=== PATIENT | female | born 1985 | race Caucasian/White ===

== ENCOUNTER 2019-07-26 06:44 | Day surgery (SDC) | payer BC ==
[~2019-07-26 06:44] MED LIST: Lactated Ringers 1,000 ML IV SCH; Sodium Chloride 0.9% 10 ML SDV IV PRN; Sodium Chloride 0.9% 10 ML Syringe FLUSH PRN; Sodium Chloride 0.9% 2.5 ML Syringe FLUSH PRN
[2019-07-26] MEDS ORDERED: Lidocaine 2% 5 ML SDV ONE (07:01)
[2019-07-26] MEDS ORDERED: fentaNYL 250 MCG/5 ML SDV ONE (07:01)
[2019-07-26] MEDS ORDERED: Propofol 200 MG/20 ML SDV ONE (07:01)
[2019-07-26] MEDS ORDERED: Midazolam 1 MG/ML 2 ML SDV ONE (07:01)
[2019-07-26] MEDS ORDERED: Ondansetron 4 MG/2 ML SDV ONE (07:01)
--- NOTE | 2019-07-26 07:35 | PCM.PREANE ---
Preanesthetic Assessment - Anesthesia/Transfusion/Family Hx Anesthesia History: Prior Anesthesia Without Reaction Family History of Anesthesia Reaction: No Transfusion History: No Prior Transfusion(s) - Review of Systems General: No Symptoms Pulmonary: No Symptoms Cardiovascular: No Symptoms Gastrointestinal: No Symptoms Neurological: No Symptoms Other: Reports: None - Physical Assessment NPO Status Date: 07/25/19 NPO Status Time: 23:30 Vital Signs: Last Vital Signs Temp 97.7 F 07/26/19 07:10 Pulse 93 07/26/19 07:10 Resp 15 07/26/19 07:10 BP 138/91 H 07/26/19 07:10 Pulse Ox 94 L 07/26/19 07:10 Height: 5 ft 4 in Weight: 93.44 kg ASA Class: 2 Mental Status: Alert & Oriented x3 Airway Class: Mallampati = 2 Dentition: Reports: Normal Dentition ROM/Head Extension: Full Lungs: Clear to Auscultation, Normal Respiratory Effort Cardiovascular: Regular Rate, Regular Rhythm - Lab Values: Laboratory Last Values WBC 9.74 K/uL (4.0-11.0) 07/26/19 07:01 RBC 5.30 M/uL (4.30-5.90) 07/26/19 07:01 Hgb 14.2 g/dL (12.0-16.0) 07/26/19 07:01 Hct 43.8 % (36.0-46.0) 07/26/19 07:01 MCV 82.6 fL (80.0-98.0) 07/26/19 07:01 MCH 26.8 pg (27.0-32.0) L 07/26/19 07:01 MCHC 32.4 g/dL (31.0-37.0) 07/26/19 07:01 RDW Std Deviation 47.5 fl (28.0-62.0) 07/26/19 07:01 RDW Coeff of Shanell 16 % (11.0-15.0) H 07/26/19 07:01 Plt Count 254 K/uL (150-400) 07/26/19 07:01 MPV 10.70 fL (7.40-12.00) 07/26/19 07:01 Nucleated RBC % 0.0 /100WBC 07/26/19 07:01 Nucleated RBCs # 0 K/uL 07/26/19 07:01 HCG, Qual NEGATIVE (NEG) 07/26/19 07:01 - Allergies Allergies/Adverse Reactions: Allergies Allergy/AdvReac Type Severity Reaction Status Date / Time No Known Allergies Allergy Verified 07/23/19 09:53 - Blood Blood Available: No - Anesthesia Plan Pre-Op Medication Ordered: None - Acknowledgements Anesthesia Type Planned: General Anesthesia Pt an Appropriate Candidate for the Planned Anesthesia: Yes Alternatives and Risks of Anesthesia Discussed w Pt/Guardian: Yes Pt/Guardian Understands and Agrees with Anesthesia Plan: Yes Additional Comments: PMH: thyroid replacement, ulcerative colitis being rxed with tums and lomotil, gerd, depression PLAN: ga/lma PreAnesthesia Questionnaire HEENT History: Reports: None Cardiovascular History: Reports: None Respiratory History: Reports: None Gastrointestinal History: Reports: Colon Polyp, GERD Other Gastrointestinal History: hx ulcerative colitis Genitourinary History: Reports: None 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: Dysfunctional Uterine Bleeding Musculoskeletal History: Reports: Fracture Other Musculoskeletal History: hx fx foot Neurological History: Reports: Other (See Below) Other Neuro History: hx bells palsy Psychiatric History: Reports: Anxiety, Depression Endocrine/Metabolic History: Reports: Hypothyroidism, Obesity/BMI 30+ Hematologic History: Reports: None Immunologic History: Reports: None Oncologic (Cancer) History: Reports: None Dermatologic History: Reports: None - Past Surgical History Head Surgeries/Procedures: Reports: None HEENT Surgical History: Reports: Other (See Below) Other HEENT Surgeries/Procedures: masteofacial surgery for TMJ Cardiovascular Surgical History: Reports: None Respiratory Surgical History: Reports: None GI Surgical History: Reports: Colonoscopy Female Surgical History: Reports: None Endocrine Surgical History: Reports: None Neurological Surgical History: Reports: None Musculoskeletal Surgical History: Reports: None Oncologic Surgical History: Reports: None Dermatological Surgical History: Reports: None - SUBSTANCE USE Smoking Status *Q: Former Smoker - HOME MEDS Home Medications: Home Meds DULoxetine HCl [Duloxetine HCl] 60 mg PO DAILY 07/23/19 [History] Levothyroxine Sodium [Synthroid] 75 mcg PO DAILY 07/23/19 [History] Omeprazole 40 mg PO DAILY 07/23/19 [History] Zolpidem [Ambien] 10 mg PO BEDTIME PRN 07/23/19 [History] atorvaSTATin Calcium [Atorvastatin Calcium] 20 mg PO DAILY 07/23/19 [History] hydrOXYzine HCL [Hydroxyzine HCl] 10 mg PO ASDIRECTED PRN 07/23/19 [History] - CURRENT (IN HOUSE) MEDS Current Meds: Current Medications Lactated Ringer's (Ringers, Lactated) 1,000 mls @ 125 mls/hr IV ASDIRECTED KELBY Last Admin: 07/26/19 07:01 Dose: 125 mls/hr Sodium Chloride (Saline Flush) 10 ml FLUSH ASDIRECTED PRN PRN Reason: Keep Vein Open Sodium Chloride (Saline Flush) 2.5 ml FLUSH ASDIRECTED PRN PRN Reason: Keep Vein Open Sodium Chloride (Normal Saline) 10 ml IV ASDIRECTED PRN PRN Reason: IV Use Sodium Chloride (Saline Flush) 10 ml FLUSH ASDIRECTED PRN PRN Reason: Keep Vein Open Sodium Chloride (Saline Flush) 2.5 ml FLUSH ASDIRECTED PRN PRN Reason: Keep Vein Open Sodium Chloride (Normal Saline) 10 ml IV ASDIRECTED PRN PRN Reason: IV Use Discontinued Medications Fentanyl (Sublimaze) Confirm Administered Dose 250 mcg .ROUTE .STK-MED ONE Stop: 07/26/19 07:02 Lidocaine (Xylocaine-Mpf 2%) Confirm Administered Dose 5 ml .ROUTE .STK-MED ONE Stop: 07/26/19 07:02 Midazolam HCl (Versed 1 Mg/Ml) Confirm Administered Dose 2 mg .ROUTE .STK-MED ONE Stop: 07/26/19 07:02 Ondansetron HCl (Zofran) Confirm Administered Dose 4 mg .ROUTE .STK-MED ONE Stop: 07/26/19 07:02 Propofol (Diprivan 20 Ml) Confirm Administered Dose 200 mg .ROUTE .STK-MED ONE Stop: 07/26/19 07:02
[2019-07-26] MEDS ORDERED: Dexamethasone 4 MG/ML 5 ML MDV ONE (08:09)
[2019-07-26] MEDS ORDERED: Atropine 0.1 MG/ML 10 ML Syringe IVPUSH PRN ×2 (08:26)
[2019-07-26] MEDS ORDERED: Albuterol 0.083% 2.5 MG/3 ML Neb Soln NEB PRN (08:26)
[2019-07-26] MEDS ORDERED: 50% Dextrose in Water 50 ML Syringe IVPUSH PRN (08:26)
[2019-07-26] MEDS ORDERED: Naloxone 0.4 MG/ML Syringe IVPUSH PRN (08:26)
[2019-07-26] MEDS ORDERED: EPINEPHrine 1:10,000 1 MG/10 ML Syringe IVPUSH PRN (08:26)
[2019-07-26] MEDS ORDERED: fentaNYL 100 MCG/2 ML SDV IVPUSH PRN (08:26)
[2019-07-26] MEDS ORDERED: Acetaminophen/HYDROcodone 325-5 MG Tab PO PRN (08:45)
--- NOTE | 2019-07-26 08:45 | PCM.OPNOTE ---
- General Post-Op/Procedure Note Date of Surgery/Procedure: 07/26/19 Operative Procedure(s): Operative Hysteroscopy - Polypectomy with myosure device Findings: EUA showed a normal sized retroverted uterus Hysteroscopy showed small endometrial polyp in the left lower segment of the uterus Pre Op Diagnosis: Infertility. Abnormal uterine bleeding secondary to Endometrial polyp Post-Op Diagnosis: same Anesthesia Technique: General LMA Primary Surgeon: Jones Eaton Anesthesia Provider: Olu Albert Pathology: endometrial polyp Fluid Replacement, Intraop: 1,000 EBL in mLs: 5 Condition: Good
[2019-07-26] MEDS ORDERED: Ketorolac 30 MG/ML SDV ONE (08:56)
[2019-07-26] MEDS ORDERED: Ketorolac 30 MG/ML SDV IVPUSH ONE (08:58)
--- NOTE | 2019-07-26 09:18 | PCM.POSTAN ---
POST ANESTHESIA ASSESSMENT - MENTAL STATUS Mental Status: Alert - VITAL SIGNS Vital Signs: Last Vital Signs Temp 36.5 C 07/26/19 07:10 Pulse 101 H 07/26/19 09:09 Resp 18 07/26/19 09:09 BP 135/89 07/26/19 09:09 Pulse Ox 98 07/26/19 09:09 - RESPIRATORY Respiratory Status: Respiratory Rate WNL - CARDIOVASCULAR CV Status: Pulse Rate WNL - GASTROINTESTINAL GI Status: No Symptoms - PAIN Pain Score: 4 (Cramping) - POST OP HYDRATION Hydration Status: Adequate & Stable - OBSERVATIONS Free Text/Narrative:: Doing well. Ready for transfer to .
--- NOTE | 2019-07-26 11:28 | PCM48HPAN ---
Post Anesthesia Note - EVALUATION WITHIN 48HRS OF ANESTHETIC Vital Signs in Normal Range: Yes Patient Participated in Evaluation: Yes Respiratory Function Stable: Yes Airway Patent: Yes Cardiovascular Function Stable: Yes Hydration Status Stable: Yes Pain Control Satisfactory: Yes Nausea and Vomiting Control Satisfactory: Yes Mental Status Recovered: Yes Vital Signs: Last Vital Signs Temp 97.7 F 07/26/19 09:15 Pulse 92 07/26/19 10:00 Resp 15 07/26/19 10:00 BP 122/72 07/26/19 10:00 Pulse Ox 98 07/26/19 10:00
--- NOTE | 2019-07-26 15:18 | OR ---
SURGEON: KAREEM CHIANG DATE OF PROCEDURE:07/26/2019 PREOPERATIVE DIAGNOSES: A 34-year-old para 0 with abnormal uterine bleeding secondary to endometrial polyp, also infertility. POSTOPERATIVE DIAGNOSES: A 34-year-old para 0 with abnormal uterine bleeding secondary to endometrial polyp, also infertility. PROCEDURE: Operative hysteroscopy with polypectomy with MyoSure. IV FLUIDS: 1000. FLUID DEFICIT: 280 of normal saline. COMPLICATIONS: None. PATHOLOGY: Endometrial polyp FINDING: EUA showed normal sized anteverted uterus. Hysteroscopy showed polyp in the in the left lower uterine segment. BRIEF HISTORY: The patient is a 34-year-old, para 0, who had infertility for one year. She underwent an evaluation, noted to have an endometrial polyp and also anovulation. She was also complaining of intermenstrual bleeding and desired a polypectomy. She was explained the risks, benefits, and alternatives, and she decided to proceed. DESCRIPTION OF PROCEDURE: The patient was taken to the operating room where general anesthesia was performed without difficulty. She was prepared and draped in the dorsal lithotomy position with the Tam stirrups. The cervix was exposed with the aid of a speculum and was gradually dilated with the Hegar dilator to accommodate the MyoSure hysteroscope. The polyp was noted in the lower segment of the uterus and was removed without difficulty with the MyoSure. The bilateral ostia were visualized. Then a size 2 endometrial curette was used to curette slightly all the perry of the uterus and the specimen was sent to pathology. The patient tolerated the procedure well. All instrument and pad counts were correct x2. MARCELO / JEFF /[id number]
== END 2019-07-26 10:27 | disposition home or self-care (01) ==
LOC: MW.SDS 06:44
PROVIDERS: ATTEND Obstetrics & Gynecology
DX: N84.0 Polyp of corpus uteri (principal); N97.8 Female infertility of other origin; E66.9 Obesity, unspecified; F32.9 Major depressive disorder, single episode, unspecified; K21.9 Gastro-esophageal reflux disease without esophagitis; F41.9 Anxiety disorder, unspecified; E03.9 Hypothyroidism, unspecified; Z79.890 Hormone replacement therapy; Z87.891 Personal history of nicotine dependence; Z79.899 Other long term (current) drug therapy; Z68.35 Body mass index [BMI] 35.0-35.9, adult
CPT/HCPCS: 36415; 58558; 84703; 85027; 88305; J1100; J1885; J2001; J2250; J2405; J2704; J3010; J7120